=== PATIENT | female | born 2005 | race Caucasian/White ===

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

== ENCOUNTER 2023-01-17 20:40 | Emergency (ER) | payer MEDICAID ==
[~2023-01-17] VITALS: Ht 165.1 cm; Wt 45.6 kg
[2023-01-17 20:57] VITALS: O2SAT 98
[2023-01-17] MEDS ORDERED: ACETAMINOPHEN 325MG TABLET PO STA (21:53)
[2023-01-17] MEDS ORDERED: ONDANSETRON 4MG ODT PO STA (21:53)
[2023-01-17] MEDS ORDERED: KETOROLAC 60MG/2ML VIAL IM STA (21:53)
[2023-01-17 22:59] LABS: CLARITY URINE CLEAR (CLEAR); COLOR URINE YELLOW (YELLOW); PH URINE 6.5 (4.5-8.0)
[2023-01-17 23:00] LABS: GLUCOSE URINE NEGATIVE (NEGATIVE); KETONES URINE NEGATIVE (NEGATIVE); LEUKOCYTE ESTERASE URINE NEGATIVE (NEGATIVE); NITRITE URINE NEGATIVE (NEGATIVE); OCCULT BLOOD URINE 1+ (NEGATIVE); PROTEIN URINE 3+ (NEGATIVE); UROBILINOGEN URINE 0.2 E.U./dL (0.2-1.0)
[2023-01-17 23:07] LABS: BACTERIA URINE 1+; SQUAMOUS EPITHELIAL CELL URINE 1+ /lpf (RARE/1+); WBC URINE 0-2 /hpf (0-2)
[2023-01-17 23:52] VITALS: TEMP 98.1
[2023-01-18 00:57] VITALS: BP 97/58; PULSE 88; RESP 18
== END 2023-01-18 01:04 | disposition home or self-care (01) ==
LOC: ER 20:40
DX: B54 Unspecified malaria (principal)
CPT/HCPCS: 81003; 71045; 96372; 99284; Q0162; J1885; Z7610